=== PATIENT | female | born 1950 | race American Indian/Alaskan Native ===

== ENCOUNTER 2020-06-18 20:19 | Emergency (ER) | payer OTHER, MEDICARE ==
[2020-06-18] MEDS ORDERED: Sodium Chloride 0.9% 10 ML Syringe FLUSH PRN (20:21)
[2020-06-18] MEDS ORDERED: Sodium Chloride 0.9% 10 ML SDV IV PRN (20:21)
[2020-06-18] MEDS ORDERED: Sodium Chloride 0.9% 2.5 ML Syringe FLUSH PRN (20:21)
[2020-06-18] MEDS ORDERED: HYDROmorphone 1 MG/ML Syringe IVPUSH ONE ×2 (20:23→22:48)
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
[2020-06-18 20:52] LABS: BLOOD UREA NITROGEN,BUN 21 mg/dL (7.0-18.0); CARBON DIOXIDE,CO2 24.3 mmol/L (21.0-32.0); CHLORIDE,CL 99 mmol/L (98-107); GLUCOSE RANDOM 457 mg/dL (74-106); LIPASE 236 U/L (73-393); POTASSIUM,K 3.6 mmol/L (3.5-5.1); SODIUM,NA 137 mmol/L (136-145)
[2020-06-18] MEDS ORDERED: Iopamidol 755 MG/ML 500 ML Multipack Bottle IVPUSH STA (21:31)
[2020-06-18] MEDS ORDERED: Ondansetron 4 MG/2 ML SDV IVPUSH ONE (21:51)
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
== END 2020-06-18 23:20 ==
LOC: MW.ED 20:19
DX: S72.001A Fracture of unspecified part of neck of right femur, initial encounter for closed fracture (principal); E11.9 Type 2 diabetes mellitus without complications; V03.90XA Pedestrian on foot injured in collision with car, pick-up truck or van, unspecified whether traffic or nontraffic accident, initial encounter
CPT/HCPCS: 36415; 51702; 70450; 71260; 72125; 72131; 73502; 74177; 80053; 81001; 82550; 83690; 84484; 85025; 85610; 85730; 86850; 86900; 86901; 87086; 87088; 87186; 93005; 96374; 96375; 99285; J1170; J2405; Q9967; 93010; 99284